=== PATIENT | female | born 1985 | race Caucasian/White ===

== ENCOUNTER 2024-02-28 16:50 | Emergency (ER) | payer OTHER, BC, SELFPAY ==
[2024-02-28 17:11] VITALS: BP 152/95; PULSE 82; TEMP 37; O2SAT 98; BMI 25.7
--- NOTE | 2024-02-28 18:33 | ED_ITS ---
HPI HPI - General Adult General Chief complaint: Skin/Abscess/Foreign Body Stated complaint: TAIL BONE PAIN Time Seen by Provider: 02/28/24 18:16 Source: patient Mode of arrival: walk-in History of Present Illness HPI narrative: Patient is a 38-year-old female who presents to the emergency department for evaluation of a swollen painful area on her tailbone. She states she had a similar area several weeks ago that opened and drained on its own and resolved. She states this area is more swollen and painful although she has not had any fevers or vomiting. She has no concern for . She has been able to have bowel movements. She went to urgent care today to have her left middle finger evaluated for swelling and redness and was prescribed Bactrim and Keflex. She was told to come to the emergency department to be evaluated for her tailbone. Related Data Previous Rx's ?Medication ?Instructions ?Recorded amoxicillin 875 mg-potassium 1 tab PO Q12H #20 tabs 02/28/24 clavulanate 125 mg tablet hydrocodone 5 mg-acetaminophen 325 1 tab PO Q6H PRN pain 4 days #15 02/28/24 mg tablet tabs ketorolac 10 mg tablet 10 mg PO TID PRN pain #10 tabs 02/28/24 Allergies Allergy/AdvReac Type Severity Reaction Status Date / Time No Known Drug Allergies Allergy Verified 02/28/24 17:11 Opioid HPI Opioid Management Most Recent Opioid Data: Last Pain Scale 6 02/28/24 18:45 02/28/24 Last MAR Pain Assessment 02/28/24 18:45 Review of Systems ROS Constitutional Denies: fever or chills Ears, nose, mouth, and throat Denies: throat pain, nasal discharge or nasal congestion Respiratory Denies: shortness of breath Gastrointestinal Denies: nausea or vomiting Integumentary/Breast Denies: rash Hematologic/Lymphatic Denies: easy bruising or easy bleeding PFSH PFSH Social History Little interest or pleasure in doing things: not at all Feeling down, depressed, or hopeless: not at all Exam Narrative Exam Narrative: Gen.: Awake, alert, in no distress Head: Normocephalic, atraumatic ENT: Moist mucous membranes Respiratory: No respiratory distress Back: Pilonidal cyst palpated with minimal fluctuance, firmness noted to the lateral aspect, no extension to the rectum. No open areas or drainage noted. Extremities: Moves extremities equally, pad of the left middle finger is mildly edematous and erythematous with no circumferential erythema. No palpated abscess or felon. Psych: Normal mood and affect Neuro: No focal neuro deficit Skin: Warm, dry, intact Constitutional Vital Signs, click to edit/add: Last Vital Signs Temp 98.6 F 02/28/24 17:11 Pulse 82 02/28/24 17:11 Resp 16 02/28/24 17:11 BP 152/95 H 02/28/24 17:11 Pulse Ox 98 02/28/24 17:11 O2 Del Method Room Air 02/28/24 17:11 Course Vital Signs Vital signs: Vital Signs Temperature 98.6 F 02/28/24 17:11 Pulse Rate 82 02/28/24 17:11 Respiratory Rate 16 02/28/24 17:11 Blood Pressure 152/95 H 02/28/24 17:11 Pulse Oximetry 98 02/28/24 17:11 Oxygen Delivery Method Room Air 02/28/24 17:11 Temperature 98.6 F 02/28/24 17:11 Pulse Rate 82 02/28/24 17:11 Respiratory Rate 16 02/28/24 17:11 Blood Pressure 152/95 H 02/28/24 17:11 Pulse Oximetry 98 02/28/24 17:11 Oxygen Delivery Method Room Air 02/28/24 17:11 Medical Decision Making MDM Narrative Medical decision making narrative: Recommended opening the pilonidal cyst abscess, patient is agreeable. She declined narcotics in the ER but was agreeable to oral Toradol. The abscess was opened, a moderate amount of purulent material was expressed and the patient is discharged home, she was encouraged not to take the Bactrim and Keflex prescribed by urgent care but instead is prescribed Augmentin with a short course of analgesics and NSAIDs. She was encouraged to do warm sitz bath's for both her finger and tailbone area and was referred to general surgery if she would like to have a pilonidal cyst removed. Return to the emergency department if symptoms change or worsen. Incision and drainage: A single layer of iodine was used to prep the area. Drapes were placed to ensure isolation of the abscess and surrounding skin tissue. A regional field block was performed with 1% lidocaine. Incision was made with an 11 blade to the full dimension of the abscess, significant amount purulent material was expressed. Cultures were obtained and sent to the lab. A dry sterile dressing was placed. Patient tolerated the procedure well and will be discharged with Augmentin. Patient is to follow-up in the next 2-3 days with PCP or ED to have area evaluated. SUPERVISED APC VISIT, PHYSICIAN ATTESTATION: Based on the medical record the care appears appropriate. ? Medical Records Medical records reviewed: Yes I reviewed the patient's medical records Discharge Plan Discharge Chief Complaint: Skin/Abscess/Foreign Body Clinical Impression: Cyst, pilonidal, with abscess Patient Disposition: Home, Self-Care Time of Disposition Decision: 18:33 Condition: Good Prescriptions / Home Meds: New amoxicillin-pot clavulanate 875-125 mg tablet 1 tab PO Q12H Qty: 20 0RF hydrocodone-acetaminophen 5-325 mg tablet 1 tab PO Q6H PRN (Reason: pain) 4 Days Qty: 15 0RF Rx Instructions: DX: L05.01 ketorolac 10 mg tablet 10 mg PO TID PRN (Reason: pain) Qty: 10 0RF Print Language: Albanian Instructions: Pilonidal Cyst (ED), Sitz Bath (DC) Referrals: Bassem Swann MD [Physician] - As needed Physician,Non-Staff, MD [Primary Care Provider] - 1 week
[2024-02-28] MEDS: KETOROLAC TROMETHAMINE 10 MG TABLET PO (18:45)
[2024-02-28] MEDS: LIDOCAINE HCL 1% 100 MG/10 ML MDV INJ (18:49)
[2024-02-29 08:00] LABS: BOX Test Reference Lab FIRELANDS; BOX Test Sent Out WOUND CULTURE
== END 2024-02-28 19:15 | disposition home or self-care (01) ==
PROVIDERS: Physician Assistant; Emergency Provider Emergency Medicine
DX: L05.01 Pilonidal cyst with abscess (principal)
CPT/HCPCS: 10080; 36415; 87070; 87075; 87150; 87186; 87205; 99283